=== PATIENT | male | born 1935 | race Caucasian/White ===

== ENCOUNTER → 2017-06-22 | Outpatient (CLI) | payer MEDICARE, BC | END | disposition home or self-care (01) | LOC: PCVCIMAG 13:28 | DX: I73.9 Peripheral vascular disease, unspecified (principal); I25.10 Atherosclerotic heart disease of native coronary artery without angina pectoris; S81.801S Unspecified open wound, right lower leg, sequela; C67.9 Malignant neoplasm of bladder, unspecified; L97.919 Non-pressure chronic ulcer of unspecified part of right lower leg with unspecified severity; Z87.891 Personal history of nicotine dependence; Z79.899 Other long term (current) drug therapy; X58.XXXS Exposure to other specified factors, sequela | CPT/HCPCS: 93925; 93926; G0463 ==

== ENCOUNTER → 2017-09-27 | Outpatient (CLI) | payer MEDICARE, BC ==
[~2017-09-27] MED LIST: CLOPIDOGREL BISULFATE 75 MG TABLET; DIAZEPAM 10 MG TABLET.; EPTIFIBATIDE BOLUS 2,000 MCG/ML 10ML VIAL. IV; HEPARIN SODIUM 5,000 UNIT/ML VIAL for PCVC.; HYDROcodone/APAP 5/325MG 1 TAB TABLET; IODIXANOL 270 MG/ML 100 ML VIAL.; IV NORMAL SALINE 1000ML BAG 1,000 ML; LIDOCAINE 1% Multi-Dose 20 ML VIAL.; MIDAZOLAM HCL/PF 2 MG/2 ML VIAL.; WATER FOR INJECTION,STERILE 10 ML IJ; ceFAZolin SODIUM 1 GM VIAL; fentaNYL PF VIAL 100 MCG/2 ML VIAL; hydrALAZINE 20 MG/ML VIAL.
== END | disposition home or self-care (01) ==
LOC: PCVCIMAG 14:08
DX: I70.221 Atherosclerosis of native arteries of extremities with rest pain, right leg (principal); I70.298 Other atherosclerosis of native arteries of extremities, other extremity; I10 Essential (primary) hypertension; Z79.01 Long term (current) use of anticoagulants; Z85.51 Personal history of malignant neoplasm of bladder
CPT/HCPCS: 36252; 37186; 37221; 37227; 37229; 75716; 76937; 93926; C1725; C1751; C1757; C1760; C1769; C1876; C1885; C1887; C1894; C2623; J0360; J0690; J1327; J1644; J2250; J3010; J7030

== ENCOUNTER → 2017-09-29 | Outpatient (CLI) | payer MEDICARE, BC ==
[~2017-09-29] MED LIST changes: -CLOPIDOGREL BISULFATE 75 MG TABLET; +EPINEPHrine 1 MG/ML VIAL; -HYDROcodone/APAP 5/325MG 1 TAB TABLET; -IV NORMAL SALINE 1000ML BAG 1,000 ML; +IV NORMAL SALINE 500ML BAG 0 ML; +IV NORMAL SALINE 500ML BAG 500 ML; -LIDOCAINE 1% Multi-Dose 20 ML VIAL.; +LIDOCAINE 1% Multi-Dose 50 ML VIAL.; -WATER FOR INJECTION,STERILE 10 ML IJ; +WATER FOR INJECTION,STERILE 20 ML VIAL. IJ
== END | disposition home or self-care (01) ==
LOC: PCVCINTER 07:30
DX: I70.238 Atherosclerosis of native arteries of right leg with ulceration of other part of lower leg (principal); L97.819 Non-pressure chronic ulcer of other part of right lower leg with unspecified severity; I70.202 Unspecified atherosclerosis of native arteries of extremities, left leg; I70.0 Atherosclerosis of aorta; I70.1 Atherosclerosis of renal artery; I10 Essential (primary) hypertension; I25.10 Atherosclerotic heart disease of native coronary artery without angina pectoris
CPT/HCPCS: 36252; 37186; 37221; 37227; 37229; 75716; 76937; 99152; 99153; C1725; C1751; C1757; C1760; C1769; C1874; C1885; C1887; C1894; J0171; J0360; J0690; J1327; J1644; J2250; J3010; J7040

== ENCOUNTER → 2017-09-30 | Outpatient (CLI) | payer MEDICARE, BC | END | disposition home or self-care (01) | LOC: PCVCCLINIC 11:38 | DX: Z51.81 Encounter for therapeutic drug level monitoring (principal); I25.10 Atherosclerotic heart disease of native coronary artery without angina pectoris; I73.9 Peripheral vascular disease, unspecified; C67.9 Malignant neoplasm of bladder, unspecified; Z79.01 Long term (current) use of anticoagulants | CPT/HCPCS: 85610 ==

== ENCOUNTER → 2017-10-08 | Outpatient (CLI) | payer MEDICARE, BC | END | disposition home or self-care (01) | LOC: PCVCCLINIC 14:00 | DX: Z51.81 Encounter for therapeutic drug level monitoring (principal); I73.9 Peripheral vascular disease, unspecified; I25.10 Atherosclerotic heart disease of native coronary artery without angina pectoris; C67.9 Malignant neoplasm of bladder, unspecified; Z79.01 Long term (current) use of anticoagulants | CPT/HCPCS: 85610 ==

== ENCOUNTER → 2017-10-15 | Outpatient (CLI) | payer MEDICARE, BC | END | disposition home or self-care (01) | LOC: PCVCCLINIC 14:21 | DX: Z51.81 Encounter for therapeutic drug level monitoring (principal); I73.9 Peripheral vascular disease, unspecified; I25.10 Atherosclerotic heart disease of native coronary artery without angina pectoris; C67.9 Malignant neoplasm of bladder, unspecified; Z79.01 Long term (current) use of anticoagulants | CPT/HCPCS: 85610 ==